=== PATIENT | female | born 1995 | race African-American/Black ===

== ENCOUNTER 2016-08-05 02:07 | Emergency (ER) | payer OTHER ==
[~2016-08-05] VITALS: Ht 167.6 cm; Wt 68.0 kg
[2016-08-05 02:24] VITALS: BP 146/84
--- NOTE | 2016-08-05 03:02 | ED EYE COMPLAINT ---
History of Present Illness General Chief Complaint: Eye Problems Stated Complaint: "PER PT RT EYE SEN AND CANT OPEN" Source: patient Exam Limitations: no limitations Vital Signs & Intake/Output Vital Signs & Intake/Output Vital Signs Date Time Temp Pulse Resp B/P B/P Pulse O2 O2 Flow FiO2 Mean Ox Delivery Rate 08/06 223 98.1 78 18 146/84 98 Room Air Allergies Coded Allergies: No Known Allergies (08/05/16) Reconcile Medications Ciprofloxacin (Ciloxan) 0.3 % DROPS 2 GTT OPH Q6 CORNEAL ABRASION Diclofenac Sodium 0.1 % DROPS 1 GTT OPH 4 TIMES/DAY PRN EYE PAIN Triage Note: PAIN RT EYE,UNABLE TO OPEN,PT DOES WEAR CONTACT LENS,STARTED AFTER TAKING LENS OUT TONIGHT Triage Nurses Notes Reviewed? yes Onset: Abrupt Duration: hour(s):, constant, continues in ED Injury Environment: home Severity: moderate, severe : No Patient currently breastfeeds: No HPI: Patient presents for evaluation of burning right eye pain that began about 90 minutes ago after taking out her contact lens. The pain was abrupt in onset and has been constant. She is having trouble opening her eye secondary to pain. Past History Travel History Traveled to [place] past 21 day No Medical History Any Pertinent Medical History? see below for history Neurological: NONE EENT: NONE Cardiovascular: NONE Respiratory: NONE Gastrointestinal: NONE Hepatic: NONE Renal: NONE Musculoskeletal: NONE Psychiatric: NONE Endocrine: NONE Blood Disorders: NONE Cancer(s): NONE Surgical History Surgical History: non-contributory Psychosocial History What is your primary language Citizen Of [place] Tobacco Use: Never used Family History Hx Contributory? No Review of Systems Review of Systems Constitutional: Reports: no symptoms. Eyes: Reports: see HPI. Ear: Reports: no symptoms. Nose: Reports: no symptoms. Mouth: Reports: no symptoms. Throat: Reports: no symptoms. Respiratory: Reports: no symptoms. Cardiovascular: Reports: no symptoms. GI: Reports: no symptoms. Genitourinary: Reports: no symptoms. Musculoskeletal: Reports: no symptoms. Skin: Reports: no symptoms. Neurological/Psychological: Reports: no symptoms. Hematologic/Endocrine: Reports: no symptoms. Immunologic/Allergic: Reports: no symptoms. All Other Systems: Reviewed and Negative Physical Exam General Appearance: MODERATE DISCOMFORT SECONDARY TO RIGHT EYE PAIN. General Inspection: normal inspection General Inspection: SLIGHT CONJUNCTIVAL INJECTION Eyelid: normal inspection Conjunctiva/Sclera: injected Cornea: abrasion EOM: intact Pupil: normal pupil Anterior Chamber: normal inspection Physical Exam Head: atraumatic, normal appearance Nose: normal inspection Mouth/Throat: MOIST MUCOSA Neck: supple, full range of motion Neurologic/Psych: alert, normal mood/affect Skin: warm/dry Comments: Fluorescein exam of the right eye reveals a linear uptake at the 6 o'clock position at the periphery of the cornea Progress Differential Diagnosis: corneal abrasion, corneal foreign body Plan of Care: abx,pain control, f/u optho Departure Departure Disposition: HOME OR SELF CARE Condition: Stable Clinical Impression Primary Impression: Right corneal abrasion Qualifiers: Encounter type: initial encounter Qualified Code: S05.01XA - Injury of conjunctiva and corneal abrasion without foreign body, right eye, initial encounter Referrals: PATIENT HAS NO PRIMARY CARE DR (PCP/Family) Additional Instructions: Voltaren eyedrops as prescribed. Ciloxan as prescribed. Follow-up with Dr. Bray within the next 48 hours for reevaluation. Return if any concerns or sudden worsening. Thank you for choosing the [facility] for your care. It was a pleasure to serve you today. Wilton Ren M.D. [facility] Departure Forms: Customer Survey General Discharge Information Prescriptions: Current Visit Scripts Ciprofloxacin (Ciloxan) 2 GTT OPH Q6 #5 ML Diclofenac Sodium 1 GTT OPH 4 TIMES/DAY PRN EYE PAIN #5 ML
[2016-08-05] MEDS ORDERED: DICLOFENAC SOD2.5 M1 OPH (03:29)
[2016-08-05] MEDS ORDERED: CILOXAN5 ML OPH (03:29)
== END 2016-08-05 03:39 ==
LOC: ERH 02:07
DX: S05.01XA Injury of conjunctiva and corneal abrasion without foreign body, right eye, initial encounter (principal); X58.XXXA Exposure to other specified factors, initial encounter; Y92.9 Unspecified place or not applicable; Y93.9 Activity, unspecified